=== PATIENT | female | born 1965 | race Caucasian/White ===

== ENCOUNTER → 2019-08-18 | Outpatient (CLI) | payer BC | END | disposition home or self-care (01) | LOC: RAH 08:54 | PROVIDERS: ATTEND Internal Medicine | DX: Z12.31 Encounter for screening mammogram for malignant neoplasm of breast (principal) | CPT/HCPCS: 77067 ==

== ENCOUNTER → 2020-09-11 | Outpatient (CLI) | payer BC | END | disposition home or self-care (01) | LOC: RAH 15:26 | PROVIDERS: ATTEND Internal Medicine | DX: Z12.31 Encounter for screening mammogram for malignant neoplasm of breast (principal) | CPT/HCPCS: 77067 ==

== ENCOUNTER → 2020-12-06 | Outpatient (CLI) | payer BC | END | disposition home or self-care (01) | LOC: RAH 09:09 | PROVIDERS: ATTEND Internal Medicine | DX: J42 Unspecified chronic bronchitis (principal); M47.815 Spondylosis without myelopathy or radiculopathy, thoracolumbar region; I70.0 Atherosclerosis of aorta | CPT/HCPCS: 71046 ==